=== PATIENT | female | born 1990 | race Caucasian/White ===

== ENCOUNTER 2016-09-29 20:39 | Emergency (ER) | payer SELFPAY ==
--- NOTE | 2016-09-29 21:20 | ER Document Report ---
ED Medical Screen (RME) - General Chief Complaint: Rash Stated Complaint: FACE RASH Mode of Arrival: Ambulatory Information source: Patient Notes: 26 y/o F presents to ED c/o blistering skin to bridge of nose and left cheek. Reports has sun sensitivity and was kayaking for 4 hrs 3 days ago. Denies itching or drainage. I have greeted and performed a rapid initial assessment of this patient. A comprehensive ED assessment and evaluation of the patient, analysis of test results and completion of the medical decision making process will be conducted by additional ED providers. TRAVEL OUTSIDE OF THE [place] IN LAST 30 DAYS: No - Related Data Allergies/Adverse Reactions: sulfamethoxazole [From Bactrim] Allergy (Verified 09/29/16 21:13) throat swells, hives trimethoprim [From Bactrim] Allergy (Verified 09/29/16 21:13) throat swells, hives Past Medical History - Social History Chew tobacco use (# tins/day): No Frequency of alcohol use: None Drug Abuse: None Renal/ Medical History: Denies: Hx Peritoneal Dialysis - Immunizations Hx Diphtheria, Pertussis, Tetanus Vaccination: Yes Physical Exam - Vital signs Vitals: Temp Pulse Resp BP Pulse Ox 98.9 F 78 16 107/55 L 99 09/29/16 21:07 09/29/16 21:07 09/29/16 21:07 09/29/16 21:07 09/29/16 21:07 - General General appearance: Appears well, Alert In distress: None - Respiratory Respiratory status: No respiratory distress Course - Vital Signs Vital signs: Temp Pulse Resp BP Pulse Ox 98.9 F 78 16 107/55 L 99 09/29/16 21:09 09/29/16 21:09 09/29/16 21:09 09/29/16 21:09 09/29/16 21:09
--- NOTE | 2016-09-30 00:02 | ER Document Report ---
HPI - HPI Patient complains to provider of: Skin rash Pain Level: 1 Context: Patient is a 26-year-old female that comes emergency department for chief complaint of a rash located on her nose and left cheek, she states that she was out in a kayak out in the sun, the following day she developed red elevated spots, after this she started putting hydrocortisone cream on it for 2 days, afterward she stopped and applied antifungal, states the area is not itchy, slightly tender if she presses on it, and has a cracked appearance. - DERM Skin Color: Normal, [place] <NEIL DELEON - Last Filed: 09/30/16 07:08> Past Medical History - General Information source: Patient - Social History Smoking Status: Current Every Day Smoker Chew tobacco use (# tins/day): No Frequency of alcohol use: None Drug Abuse: None Lives with: Family Family History: Reviewed & Not Pertinent Patient has suicidal ideation: No Patient has homicidal ideation: No - Medical History Medical History: Negative Renal/ Medical History: Denies: Hx Peritoneal Dialysis Surgical Hx: Negative - Immunizations Immunizations up to date: Yes Hx Diphtheria, Pertussis, Tetanus Vaccination: Yes <NEIL DELEON Last Filed: 09/30/16 07:08> Vertical Provider Document - CONSTITUTIONAL General Appearance: WD/WN, No Apparent Distress - INFECTION CONTROL TRAVEL OUTSIDE OF THE [place] IN LAST 30 DAYS: No - HEENT HEENT: Atraumatic, Normal ENT Exam, Normocephalic - NECK Neck: Normal Inspection - RESPIRATORY Respiratory: Breath Sounds Normal, No Respiratory Distress O2 Sat by Pulse Oximetry: 99 - CARDIOVASCULAR Cardiovascular: Regular Rate, Regular Rhythm - GI/ABDOMEN Gastrointestinal: Abdomen Soft, Abdomen Non-Tender - BACK Back: Normal Inspection - MUSCULOSKELETAL/EXTREMETIES Musculoskeletal/Extremeties: MAEW, FROM, Non-Tender - NEURO Level of Consciousness: Awake, Alert, Appropriate Motor/Sensory: No Motor Deficit, No Sensory Deficit - DERM Integumentary: Warm, Dry, Rash - Two discrete areas of abnormality on the face, one on the left lateral zygomatic area, the other on the nose. Area is mildly erythematous, nontender, has dry cracked scaly skin over it, no vesicles, bulla , induration, fluctuance <NEIL DELEON Last Filed: 09/30/16 07:08> Course - Re-evaluation Re-evalutation: There are 2 discrete areas of abnormality on the face, one on the left lateral zygomatic area, the other on the nose. Area is mildly erythematous, nontender, has dry cracked scaly skin over it, no vesicles, bulla, induration, fluctuance. Does not appear to be infected. Patient has already been using hydrocortisone before this dry appearance happened. Discussed with Dr. Ga, recommends moisturizing agent, patient referred to dermatology, discussed return precautions, patient states understanding and agreement. - Vital Signs Vital signs: Temp Pulse Resp BP Pulse Ox 98.9 F 78 16 107/55 L 99 09/29/16 21:09 09/29/16 21:09 09/29/16 21:09 09/29/16 21:09 09/29/16 21:09 <NEIL DELEON - Last Filed: 09/30/16 07:08> - Vital Signs Vital signs: Temp Pulse Resp BP Pulse Ox 98.7 F 70 16 100/52 L 99 09/30/16 01:00 09/30/16 01:00 09/30/16 01:00 09/30/16 01:00 09/30/16 07:11 <BRENDA GA - Last Filed: 09/30/16 14:08> Discharge <NEIL DELEON - Last Filed: 09/30/16 07:08> <BRENDA GA - Last Filed: 09/30/16 14:08> - Discharge Clinical Impression: Facial dermatitis Condition: Stable Disposition: HOME, SELF-CARE Additional Instructions: Stop the steroid at this time, your skin appears to have reacted strongly to the steroid cream, begin moisturizing cream such as Aloe vera (or stronger options such as Shirudo AGR+E, etc). I also suggest using nicotinamide vitamin supplement. Avoid strong sun exposures at this time. If symptoms persist follow-up with dermatology for additional evaluation and treatment (see referral) Return to the emergency department for any concerning or worsening symptoms including redness, swelling, fever, or other signs of infection. Referrals: TARIK STOKES DO [ACTIVE STAFF] - Follow up in 3-5 days
[2016-09-30 02:22] VITALS: BP 100/52
== END 2016-09-30 01:00 | disposition home or self-care (01) ==
LOC: ER 20:39
DX: L30.9 Dermatitis, unspecified (principal); F17.200 Nicotine dependence, unspecified, uncomplicated
CPT/HCPCS: 99282

== ENCOUNTER 2016-10-03 09:46 | Emergency (ER) | payer SELFPAY ==
[2016-10-03] MEDS ORDERED: MUPIROCIN 2% OINTMENT 22 GM TP ONE (10:22)
[2016-10-03] MEDS ORDERED: CEPHALEXIN 500 MG CAPSULE PO ONE (10:22)
--- NOTE | 2016-10-03 10:24 | ER Document Report ---
HPI - HPI Patient complains to provider of: patient presents with facial rash Onset: Other - Over 1 week ago Onset/Duration: Persistent, Worse Quality of pain: Burning Pain Level: 2 Context: Patient complains of painful facial rash that started over a week ago and has gradually gotten worse. Patient initially used a topical antifungal cream without relief of her symptoms. Associated Symptoms: Other - Facial rash Exacerbated by: Denies Relieved by: Denies Similar symptoms previously: No Recently seen / treated by doctor: Yes - ROS ROS below otherwise negative: Yes Systems Reviewed and Negative: Yes All other systems reviewed and negative - CONSTITUTIONAL Constitutional: DENIES: Fever - DERM Skin Color: Normal Skin Problems: Rash Past Medical History - General Information source: Patient - Social History Smoking Status: Current Every Day Smoker Chew tobacco use (# tins/day): No Frequency of alcohol use: None Drug Abuse: None Occupation: [employer] Family History: Reviewed & Not Pertinent Patient has suicidal ideation: No Patient has homicidal ideation: No - Medical History Medical History: Negative Renal/ Medical History: Denies: Hx Peritoneal Dialysis Surgical Hx: Negative - Immunizations Immunizations up to date: Yes Hx Diphtheria, Pertussis, Tetanus Vaccination: Yes Vertical Provider Document - CONSTITUTIONAL Agree With Documented VS: Yes Exam Limitations: No Limitations General Appearance: WD/WN, No Apparent Distress - INFECTION CONTROL TRAVEL OUTSIDE OF THE [place] IN LAST 30 DAYS: No - HEENT HEENT: Atraumatic, Normocephalic - NECK Neck: Normal Inspection, Supple - RESPIRATORY Respiratory: Breath Sounds Normal, No Respiratory Distress O2 Sat by Pulse Oximetry: 98 - CARDIOVASCULAR Cardiovascular: Regular Rate, Regular Rhythm - MUSCULOSKELETAL/EXTREMETIES Musculoskeletal/Extremeties: MAEW - NEURO Level of Consciousness: Awake, Alert, Appropriate Motor/Sensory: No Motor Deficit - DERM Integumentary: Warm, Dry, Rash - Erythematous scaling, crusted rash to left side of face, forehead, right upper arm, and bridge of nose. Crusted lesions are honey-colored Course - Vital Signs Vital signs: Temp Pulse Resp BP Pulse Ox 97.9 F 93 16 127/61 H 98 10/03/16 09:50 10/03/16 09:50 10/03/16 09:50 10/03/16 09:50 10/03/16 09:50 Discharge - Discharge Clinical Impression: Impetigo Condition: Stable Disposition: HOME, SELF-CARE Instructions: Bactroban Ointment ([facility]), Cephalexin ([facility]), Impetigo ([facility]), Oral Narcotic Medication ([facility]) Additional Instructions: Return immediately for any new or worsening symptoms Followup with your primary care provider, call tomorrow to make a followup appointment Follow up with dermatology as planned Prescriptions: Cephalexin Monohydrate [Keflex 500 mg Capsule] 500 mg PO Q6H 7 Days Hydrocodone/Acetaminophen [[place] 5-325 Tablet] 1 each PO Q4 PRN #15 tablet PRN Reason: Mupirocin [Bactroban 2% Ointment 22 gm] 1 applic TP TID #22 gm Forms: Return to Work Referrals: TARIK STOKES, [ACTIVE STAFF] - Follow up as needed
[2016-10-03 11:04] VITALS: BP 106/64
== END 2016-10-03 10:57 | disposition home or self-care (01) ==
LOC: ER 09:46
DX: L01.00 Impetigo, unspecified (principal); F17.200 Nicotine dependence, unspecified, uncomplicated
CPT/HCPCS: 99283; J3490

== ENCOUNTER 2017-02-14 04:49 | Emergency (ER) | payer SELFPAY ==
[2017-02-14 04:57] VITALS: BP 119/61
[2017-02-14 05:40] LABS: ABSOLUTE BASOPHILS # (AUTO) 0.1 10^3/uL (0.0-0.2); ABSOLUTE EOSINOPHILS # (AUTO) 0.2 10^3/uL (0.0-0.6); ABSOLUTE LYMPHOCYTES (AUTO) 2.8 10^3/uL (0.5-4.7); ABSOLUTE MONOCYTES (AUTO) 0.6 10^3/uL (0.1-1.4); ABSOLUTE NEUT (AUTO) 6.1 10^3/uL (1.7-8.2); BASOPHILS % (AUTO) 0.6 % (0-2); EOSINOPHILS % (AUTO) 2.3 % (0-6); HEMATOCRIT 37.7 % (36.0-47.0); HEMOGLOBIN 12.6 g/dL (12.0-15.5); HGB HCT DIFFERENCE 0.1; LYMPHOCYTES % (AUTO) 29.1 % (13-45); MEAN CORPUSCULAR HGB CONC 33.4 g/dL (32.0-36.0); MEAN CORPUSCULAR VOLUME 96 fl (80-97); MONOCYTES % (AUTO) 5.7 % (3-13); RED BLOOD COUNT 3.94 10^6/uL (3.72-5.28); RED CELL DISTRIBUTION WIDTH 12.7 % (11.5-14.0); SEGMENTED NEUTROPHILS % (AUTO) 62.3 % (42-78); WHITE BLOOD COUNT 9.7 10^3/uL (4.0-10.5)
[2017-02-14 05:46] LABS: APPEARANCE,URINE CLEAR; BILIRUBIN,URINE NEGATIVE (NEGATIVE); GLUCOSE, URINE NEGATIVE (NEGATIVE); KETONES,URINE NEGATIVE (NEGATIVE); LEUKOCYTE ESTERASE,URINE NEGATIVE (NEGATIVE); NITRITE,URINE NEGATIVE (NEGATIVE); PROTEIN,URINE NEGATIVE (NEGATIVE); URINE SPECIFIC GRAVITY 1.005; UROBILINOGEN,URINE NEGATIVE mg/dL (<2.0)
[2017-02-14 05:58] LABS: ALANINE AMINOTRANSFERASE 24 U/L (9-52); ALBUMIN 4.3 g/dL (3.5-5.0); ALKALINE PHOSPHATASE 52 U/L (38-126); ANION GAP 12 (5-19); ASPARTATE AMINO TRANSFERASE 16 U/L (14-36); BILIRUBIN,DIRECT 0.3 mg/dL (0.0-0.4); BILIRUBIN,TOTAL 0.4 mg/dL (0.2-1.3); BLOOD UREA NITROGEN 7 mg/dL (7-20); CALCIUM 9.2 mg/dL (8.4-10.2); CARBON DIOXIDE 20 mmol/L (22-30); CHLORIDE 106 mmol/L (98-107); CREATININE RESULT 0.86 mg/dL (0.52-1.25); GLUCOSE 90 mg/dL (75-110); POTASSIUM 3.6 mmol/L (3.6-5.0); TOTAL PROTEIN 7.1 g/dL (6.3-8.2)
--- NOTE | 2017-02-14 07:07 | ER Document Report ---
ED GI/ - General Chief Complaint: Abdominal Pain Stated Complaint: ABDOMINAL PAIN Time Seen by Provider: 02/14/17 07:07 Mode of Arrival: Ambulatory Information source: Patient Notes: 26 yo female c/o sudden onset periumbilical abdominal pain 2.5/5 that [place] the RLQ [place] 0330 [place] Worse standing and stretcing out, better curled up. Nausea at first, no vomit. No diarrhea or constipation. No vaginal discharge. No dysuria. No fever. Drinking last night. No injury. Left Salpingectomy for Ectopic 2015. . TRAVEL OUTSIDE OF THE [place] IN LAST 30 DAYS: No - Related Data Allergies/Adverse Reactions: sulfamethoxazole [From Bactrim] Allergy (Verified 10/03/16 09:54) throat swells, hives trimethoprim [From Bactrim] Allergy (Verified 10/03/16 09:54) throat swells, hives Past Medical History - General Information source: Patient - Social History Smoking Status: Current Every Day Smoker Chew tobacco use (# tins/day): No Frequency of alcohol use: last night Drug Abuse: None Occupation: unemployed Lives with: Spouse/Significant other Family History: Reviewed & Not Pertinent Patient has suicidal ideation: No Patient has homicidal ideation: No - Medical History Medical History: Negative Renal/ Medical History: Denies: Hx Peritoneal Dialysis Past Surgical History: Reports: Other - salpingectomy - Immunizations Immunizations up to date: Yes Hx Diphtheria, Pertussis, Tetanus Vaccination: Yes Review of Systems - Review of Systems Constitutional: No symptoms reported EENT: No symptoms reported Cardiovascular: No symptoms reported Respiratory: No symptoms reported Gastrointestinal: See HPI Genitourinary: No symptoms reported Female Genitourinary: No symptoms reported Musculoskeletal: No symptoms reported Skin: No symptoms reported Hematologic/Lymphatic: No symptoms reported Neurological/Psychological: No symptoms reported Physical Exam - Vital signs Vitals: Temp Pulse Resp BP Pulse Ox 97.6 F 61 18 119/61 96 02/14/17 04:53 02/14/17 04:53 02/14/17 04:53 02/14/17 04:53 02/14/17 04:53 Interpretation: Normal - General General appearance: Appears well, Alert In distress: None - HEENT Head: Normocephalic, Atraumatic Eyes: Normal Conjunctiva: Normal Pupils: PERRL Mucous membranes: Dry Neck: Supple. No: Lymphadenopathy - Respiratory Respiratory status: No respiratory distress Chest status: Nontender Breath sounds: Normal Chest palpation: Normal - Cardiovascular Rhythm: Regular Heart sounds: Normal auscultation Murmur: No - Abdominal Inspection: Normal Distension: No distension Bowel sounds: Normal Tenderness: Tender - umbilical and RLQ, McBurney's point Organomegaly: No organomegaly. No: Hepatomegaly, Splenomegaly - Genitourinary External exam: Normal Speculum exam: Normal, Cervix closed. No: Vaginal discharge Bimanuel exam: No: Cervical motion tender, Adnexal tenderness - Back Back: Normal, Nontender. No: CVA tenderness - Extremities General upper extremity: Normal inspection, Nontender, Normal color, Normal ROM , Normal temperature General lower extremity: Normal inspection, Nontender, Normal color, Normal ROM , Normal temperature, Normal weight bearing. No: Marques's sign - Neurological Neuro grossly intact: Yes Cognition: Normal Orientation: AAOx4 [place] Coma Scale Eye Opening: Spontaneous [place] Coma Scale Verbal: Oriented [place] Coma Scale Motor: Obeys Commands [place] Coma Scale Total: 15 Speech: Normal Motor strength normal: LUE, RUE, LLE, RLE Sensory: Normal - Psychological Associated symptoms: Normal affect, Normal mood - Skin Skin Temperature: Warm Skin Moisture: Dry Skin Color: Normal Course - Re-evaluation Re-evalutation: 02/14/17 11:19 labs negative, less tender lower into RLQ now, appendix normal on CT 3.7 cm right ovarian cyst, will send for TV US to r/o ovarian torsion 02/14/17 12:42 doppler shows ovarian cysts bilateral, no torsion, spoke with pt, rec ob follow up tramadol for pain - Vital Signs Vital signs: Temp Pulse Resp BP Pulse Ox 97.6 F 61 18 119/61 96 02/14/17 04:53 02/14/17 04:53 02/14/17 04:53 02/14/17 04:53 02/14/17 04:53 - Laboratory Result Diagrams: 02/14/17 05:27 02/14/17 05:27 Laboratory results interpreted by me: 02/14/17 05:27 Carbon Dioxide 20 L Discharge - Discharge Clinical Impression: Bilateral ovarian cysts Abdominal pain Qualifiers: Abdominal location: right lower quadrant Qualified Code(s): R10.31 - Right lower quadrant pain Condition: Good Disposition: HOME, SELF-CARE Instructions: Abdominal Pain ([facility]), Ovarian Cyst ([facility]), [facility]-[employer] Additional Instructions: to er if worse see obgyn for follow up on the ovarian cysts Prescriptions: Tramadol HCl [Ultram 50 mg Tablet] 50 mg PO ASDIR PRN #15 tablet PRN Reason:
[2017-02-14] MEDS ORDERED: NORMAL SALINE 1000 ML 1,000 ML IV ONE (07:24)
[2017-02-14] MEDS ORDERED: MORPHINE SULFATE 10 MG/ML INJ IV ONE (07:25)
[2017-02-14] MEDS ORDERED: ONDANSETRON HCL INJ/PF 4 MG/2 ML SDV IV ONE (07:25)
[2017-02-14 09:50] LABS: CHLAM PCR NOT DETECTED (NOT DETECT)
--- NOTE | 2017-02-14 11:12 | RADIOLOGY REPORT (SQ) ---
EXAM DESCRIPTION: CT ABD/PELVIS WITH IV ORAL COMPLETED DATE/TIME: 02/14/2017 10:55 am REASON FOR STUDY: RLQ abd pain COMPARISON: None. TECHNIQUE: CT scan of the abdomen and pelvis performed with intravenous and oral contrast using daniele jason scanning technique with dynamic intravenous contrast injection. Images reviewed with lung, soft t issue, and bone windows. Reconstructed coronal and sagittal MPR images reviewed. Delayed images for e valuation of the urinary system also acquired. All images stored on PACS. All CT scanners at this facility use dose modulation, iterative reconstruction, and/or weight based d osing when appropriate to reduce radiation dose to as low as reasonably achievable (ALARA). [facility]: Dose Right [facility]: CareDose [facility]: Dose Right [facility]: Teradose 4D [facility]: Audacious CONTRAST TYPE AND DOSE: contrast/concentration: Isovue 370.00 mg/ml; Total Contrast Delivered: 85.0 ml; Total Saline Delivered: 69.0 ml RENAL FUNCTION: None required. The patient is less than 50 years old. RADIATION DOSE: Up-to-date CT equipment and radiation dose reduction techniques were employed. CTDIv ol: 11.4 - 16.2 mGy. DLP: 1350 mGy-cm.. LIMITATIONS: None. FINDINGS: LOWER CHEST: No significant findings. No nodules or infiltrates. LIVER: Normal size. No masses. No dilated ducts. SPLEEN: Normal size. No focal lesions. PANCREAS: No masses. No significant calcifications. No adjacent inflammation or peripancreatic fluid collections. Pancreatic duct not dilated. GALLBLADDER: No identified stones by CT criteria. No inflammatory changes to suggest cholecystitis. ADRENAL GLANDS: No significant masses or asymmetry. RIGHT KIDNEY AND URETER: No solid masses. No significant calcification. No hydronephrosis or hydroure ter. LEFT KIDNEY AND URETER: No solid masses. No significant calcification. No hydronephrosis or hydrouret er. AORTA AND VESSELS: No aneurysm. No dissection. Renal arteries, SMA, celiac without stenosis. RETROPERITONEUM: No retroperitoneal adenopathy, hemorrhage or masses. BOWEL AND PERITONEAL CAVITY: No obstruction. No visualized masses. No free fluid. No inflammatory ch anges or thickening of bowel wall. APPENDIX: Normal. PELVIS: 3.7 cm relatively simple appearing cyst adjacent to the right ovary. No worrisome pelvic mas s. No free pelvic fluid. Bladder unremarkable. ABDOMINAL WALL: No masses. No hernias. BONES: No significant or acute findings. OTHER: No other significant finding. IMPRESSION: 1. Appendix normal. 2. Incidental simple appearing right ovarian region cyst, doubtful clinical significance, particularly in a reproductive age patient. However, given the patient's righ t lower quadrant symptomatology further followup may be warranted. This could include pelvic ultraso und Doppler assessment. TECHNICAL DOCUMENTATION: JOB ID: [id number] Quality ID # [id number]: Final reports with documentation of one or more dose reduction techniques (e.g., Au tomated exposure control, adjustment of the mA and/or kV according to patient size, use of iterative reconstruction technique) 2010 [employer]- All Rights Reserved
--- NOTE | 2017-02-14 12:05 | RADIOLOGY REPORT (SQ) ---
EXAM DESCRIPTION: U/S NON OB PEL TV W/DOPPLER COMPLETED DATE/TIME: 02/14/2017 11:55 am REASON FOR STUDY: r/o ovarian torsion, ovarian cyst COMPARISON: 02/14/2017 CT from earlier. TECHNIQUE: Dynamic and static grayscale images acquired of the pelvis via transvaginal approach and recorded on PACS. Additional selected color Doppler and spectral images recorded. LIMITATIONS: None. FINDINGS: UTERUS: Contour normal. No mass. ENDOMETRIAL STRIPE: No focal or generalized thickening. No masses. CERVIX: No nabothian cysts. RIGHT OVARY: No abnormal masses. 3.8 cm relatively simple appearing cyst. RIGHT OVARY DOPPLER: Normal arterial vascular flow without evidence for torsion. LEFT OVARY: No abnormal masses. 2.4 cm simple appearing cyst. LEFT OVARY DOPPLER: Normal arterial vascular flow without evidence for torsion. FREE FLUID: Trace. OTHER: No other significant finding. MEASUREMENTS: UTERUS: 8.8 x 4.8 x 4.0 cm ENDOMETRIAL STRIPE: 10 mm RIGHT OVARY: 5.9 x 3.1 x 2.3 cm LEFT OVARY: 3.9 x 3.5 x 2.7 cm IMPRESSION: No evidence of torsion. Bilateral small ovarian simple appearing cysts. TECHNICAL DOCUMENTATION: JOB ID: [id number] [employer]- All Rights Reserved
== END 2017-02-14 13:09 | disposition home or self-care (01) ==
LOC: ER 04:49
DX: N83.202 Unspecified ovarian cyst, left side (principal); N83.201 Unspecified ovarian cyst, right side; R11.0 Nausea; F17.200 Nicotine dependence, unspecified, uncomplicated; Z88.1 Allergy status to other antibiotic agents
CPT/HCPCS: 99284; 96374; 96375; 36415; 87210; 85025; 81025; 80053; 81001; 87491; 87591; 76830; 93976; 74177; J2270; J2405; J7030

== ENCOUNTER 2018-08-13 12:40 | Emergency (ER) | payer SELFPAY ==
[2018-08-13] MEDS ORDERED: ACETAMINOPHEN 325 MG TABLET PO ONE (13:58)
--- NOTE | 2018-08-13 14:01 | ER Document Report ---
ED General - General Chief Complaint: Upper Abdominal Pain Stated Complaint: ABDOMINAL PAIN Time Seen by Provider: 08/13/18 13:51 TRAVEL OUTSIDE OF THE [place] IN LAST 30 DAYS: No - HPI Notes: Patient is a 28-year-old female that presents to the emergency department for chief complaint of abdominal pain. Patient reports abdominal pain for about a week. She states that is usually epigastric and then radiates into her lower abdomen. She has associated nausea with no vomiting. She reports some urinary frequency but denies dysuria. She denies fevers and chills. She did have a positive test in July. She had her LMP 06/24/18. She has not seen [facility]. She reports some mild vagin al bleeding since . She has required RhoGam with previous pregnancies. She has a history of ectopic which required surgery in the past. She has not taken any [id number] medication for pain. Past Medical History: Negative Past Surgical History: Ectopic removal Social History: Occasional tobacco, occasional alcohol, denies drug use Family History: Reviewed and noncontributory for presenting illness Allergies: Reviewed, see documented allergy list. REVIEW OF SYSTEMS: CONSTITUTIONAL : No fever No chills No diaphoresis No recent illness EENT: No vision changes No congestion No sore throat CARDIOVASCULAR: No chest pain No palpitations RESPIRATORY: No shortness of breath No cough No difficulty breathing GASTROINTESTINAL: abdominal pain No nausea No vomiting No diarrhea GENITOURINARY: Urinary frequency Vaginal bleeding No dysuria No hematuria No difficulty urinating MUSCULOSKELETAL: No back pain No leg pain No arm pain SKIN: No rashes No lesions LYMPHATIC: No swollen, enlarged glands. NEUROLOGICAL: No lightheadedness No headache No weakness No paresthesias PSYCHIATRIC: No anxiety No depression PHYSICAL EXAMINATION: Vital signs reviewed, nursing noted reviewed. GENERAL: Well-appearing, well-nourished and in no acute distress. HEAD: Atraumatic, normocephalic. EYES: Eyes appear normal, extraocular movements intact, sclera anicteric, conjunctiva are normal. ENT: nares patent, oropharynx clear without exudates. Moist mucous membranes. NECK: Normal range of motion, supple without lymphadenopathy LUNGS: Breath sounds clear to auscultation bilaterally and equal. No wheezes rales or rhonchi. HEART: Regular rate and rhythm without murmurs ABDOMEN: Soft, mild epigastric tendernes, negative McBurney's point tenderness, negative Green sign, normoactive bowel sounds. No rebound, guarding, or rigidity. No masses appreciated. EXTREMITIES: Nontender, good range of motion, no pitting or edema. NEUROLOGICAL: No focal neurological deficits. Moves all extremities spontaneously Motor and sensory grossly intact on exam. PSYCH: Normal mood, normal affect. SKIN: Warm, Dry, normal turgor, no rashes or lesions noted on exposed skin - Related Data Allergies/Adverse Reactions: sulfamethoxazole [From Bactrim] Allergy (Verified 10/03/16 09:54) throat swells, hives trimethoprim [From Bactrim] Allergy (Verified 10/03/16 09:54) throat swells, hives Past Medical History - Social History Smoking Status: Current Every Day Smoker Chew tobacco use (# tins/day): No Frequency of alcohol use: Rare Drug Abuse: None Family History: Reviewed & Not Pertinent Patient has suicidal ideation: No Patient has homicidal ideation: No Renal/ Medical History: Denies: Hx Peritoneal Dialysis Past Surgical History: Reports: Other - salpingectomy - Immunizations Immunizations up to date: Yes Hx Diphtheria, Pertussis, Tetanus Vaccination: Yes Physical Exam - Vital signs Vitals: Temp Pulse Resp BP Pulse Ox 98.1 F 77 16 120/66 100 08/13/18 12:44 08/13/18 12:44 08/13/18 12:44 08/13/18 12:44 08/13/18 12:44 Course - Re-evaluation Re-evalutation: 08/13/18 14:01 Vitals reviewed. Nursing notes reviewed. Patient given Tylenol for pain. She is afebrile and nontoxic in appearance. She is complaining of vaginal bleeding in and RhoGam workup will be initiated. She has required it in the past and will likely require it again today. Ultrasound will be obtained to evaluate for ectopic . Patient denies any vaginal discharge or concern for STD. 08/13/18 15:51 Patient's beta hCG is negative. She is not . RhoGam is no longer indicated. Patient is not requiring ultrasound to rule out ectopic. She has normal lab work including no leukocytosis. She has no electrolyte derangements. Patient will be started on omeprazole. She was counseled on dietary changes. She will return to the emergency room for any new or concerning symptoms. She will follow with primary care in the next few days. Laboratory 08/13/18 08/13/18 08/13/18 14:12 14:12 14:12 WBC 10.6 H RBC 4.46 Hgb 14.2 Hct 41.7 MCV 93 MCH 31.8 MCHC 34.0 RDW 12.7 Plt Count 218 Seg Neutrophils % 69.2 Lymphocytes % 21.8 Monocytes % 6.3 Eosinophils % 2.1 Basophils % 0.6 Absolute Neutrophils 7.3 Absolute Lymphocytes 2.3 Absolute Monocytes 0.7 Absolute Eosinophils 0.2 Absolute Basophils 0.1 Sodium 140.0 Potassium 4.3 Chloride 104 Carbon Dioxide 24 Anion Gap 12 BUN 10 Creatinine 0.80 Est GFR ( Amer) > 60 Est GFR (Non-Af Amer) > 60 Glucose 96 Calcium 10.1 Total Bilirubin 0.4 Direct Bilirubin 0.1 Neonat Total Bilirubin Not Reportable Neonat Direct Bilirubin Not Reportable Neonat Indirect Bili Not Reportable AST 23 ALT 31 Alkaline Phosphatase 71 Total Protein 8.0 Albumin 5.1 H Beta HCG, Quant < 2.39 Total Beta HCG NEGATIVE Urine Color Urine Appearance Urine pH Ur Specific [place] Urine Protein Urine Glucose (UA) Urine Ketones Urine Blood Urine Nitrite Urine Bilirubin Urine Urobilinogen Ur Leukocyte Esterase Urine WBC (Auto) Urine RBC (Auto) Urine Bacteria (Auto) Squamous Epi Cells Auto Urine Mucus (Auto) Urine Ascorbic Acid Blood Type O NEGATIVE Rhogam Indicated RHOGAM NOT REQUESTED 08/13/18 14:12 WBC RBC Hgb Hct MCV MCH MCHC RDW Plt Count Seg Neutrophils % Lymphocytes % Monocytes % Eosinophils % Basophils % Absolute Neutrophils Absolute Lymphocytes Absolute Monocytes Absolute Eosinophils Absolute Basophils Sodium Potassium Chloride Carbon Dioxide Anion Gap BUN Creatinine Est GFR ( Amer) Est GFR (Non-Af Amer) Glucose Calcium Total Bilirubin Direct Bilirubin Neonat Total Bilirubin Neonat Direct Bilirubin Neonat Indirect Bili AST ALT Alkaline Phosphatase Total Protein Albumin Beta HCG, Quant Total Beta HCG Urine Color YELLOW Urine Appearance SLIGHTLY-CLOUDY Urine pH 7.0 Ur Specific [place] 1.008 Urine Protein NEGATIVE Urine Glucose (UA) NEGATIVE Urine Ketones NEGATIVE Urine Blood NEGATIVE Urine Nitrite NEGATIVE Urine Bilirubin NEGATIVE Urine Urobilinogen NEGATIVE Ur Leukocyte Esterase SMALL H Urine WBC (Auto) 4 Urine RBC (Auto) 2 Urine Bacteria (Auto) TRACE Squamous Epi Cells Auto 8 Urine Mucus (Auto) RARE Urine Ascorbic Acid NEGATIVE Blood Type Rhogam Indicated She is stable at discharge. - Vital Signs Vital signs: Temp Pulse Resp BP Pulse Ox 97.4 F 56 L 20 117/57 L 100 08/13/18 17:37 08/13/18 17:37 08/13/18 17:37 08/13/18 17:37 08/13/18 17:37 - Laboratory Result Diagrams: 08/13/18 14:12 08/13/18 14:12 Laboratory results interpreted by me: 08/13/18 08/13/18 08/13/18 14:12 14:12 14:12 WBC 10.6 H Albumin 5.1 H Ur Leukocyte Esterase SMALL H Discharge - Discharge Clinical Impression: Abdominal pain Condition: Stable Disposition: HOME, SELF-CARE Instructions: Abdominal Pain ([facility]) Additional Instructions: Please return to the emergency department if you have any worsening, or concern of your symptoms. Please return to the emergency department if you develop chest pain, difficulty breathing, severe abdominal pain, or ongoing vomiting. Please follow-up with your primary care physician in 2-3 days and any other recommended physicians. If prescribed, take all medications as directed. If you have any questions or concerns do not hesitate to return the emergency department for evaluation. Your test in the emergency room today is negative Prescriptions: RX: Omeprazole 40 mg PO DAILY #30 capsule. Referrals: [facility] [Provider Group] - Follow up as needed
[2018-08-13 14:39] LABS: ABSOLUTE BASOPHILS # (AUTO) 0.1 10^3/uL (0.0-0.2); ABSOLUTE EOSINOPHILS # (AUTO) 0.2 10^3/uL (0.0-0.6); ABSOLUTE LYMPHOCYTES (AUTO) 2.3 10^3/uL (0.5-4.7); ABSOLUTE MONOCYTES (AUTO) 0.7 10^3/uL (0.1-1.4); ABSOLUTE NEUT (AUTO) 7.3 10^3/uL (1.7-8.2); BASOPHILS % (AUTO) 0.6 % (0-2); EOSINOPHILS % (AUTO) 2.1 % (0-6); HEMATOCRIT 41.7 % (36.0-47.0); HEMOGLOBIN 14.2 g/dL (12.0-15.5); LYMPHOCYTES % (AUTO) 21.8 % (13-45); MEAN CORPUSCULAR HEMOGLOBIN 31.8 pg (27.0-33.4); MEAN CORPUSCULAR VOLUME 93 fl (80-97); MONOCYTES % (AUTO) 6.3 % (3-13); PLATELET COUNT 218 10^3/uL (150-450); RED BLOOD COUNT 4.46 10^6/uL (3.72-5.28); RED CELL DISTRIBUTION WIDTH 12.7 % (11.5-14.0); SEGMENTED NEUTROPHILS % (AUTO) 69.2 % (42-78); TOTAL CELLS COUNTED % (AUTO) 100 %; WHITE BLOOD COUNT 10.6 10^3/uL (4.0-10.5)
[2018-08-13 14:51] LABS: APPEARANCE,URINE SLIGHTLY-CLOUDY; BILIRUBIN,URINE NEGATIVE (NEGATIVE); COLOR,URINE YELLOW; GLUCOSE, URINE NEGATIVE (NEGATIVE); KETONES,URINE NEGATIVE (NEGATIVE); LEUKOCYTE ESTERASE,URINE SMALL (NEGATIVE); NITRITE,URINE NEGATIVE (NEGATIVE); PROTEIN,URINE NEGATIVE (NEGATIVE); URINE SPECIFIC GRAVITY 1.008; UROBILINOGEN,URINE NEGATIVE mg/dL (<2.0)
[2018-08-13 15:04] LABS: ALANINE AMINOTRANSFERASE 31 U/L (9-52); ALBUMIN 5.1 g/dL (3.5-5.0); ALKALINE PHOSPHATASE 71 U/L (38-126); ANION GAP 12 (5-19); ASPARTATE AMINO TRANSFERASE 23 U/L (14-36); BILIRUBIN,DIRECT 0.1 mg/dL (0.0-0.4); BILIRUBIN,TOTAL 0.4 mg/dL (0.2-1.3); BLOOD UREA NITROGEN 10 mg/dL (7-20); CALCIUM 10.1 mg/dL (8.4-10.2); CARBON DIOXIDE 24 mmol/L (22-30); CHLORIDE 104 mmol/L (98-107); GLUCOSE 96 mg/dL (75-110); POTASSIUM 4.3 mmol/L (3.6-5.0)
[2018-08-13 17:38] VITALS: BP 117/57
== END 2018-08-13 17:38 | disposition home or self-care (01) ==
LOC: ER 12:40
DX: R10.10 Upper abdominal pain, unspecified (principal); R10.30 Lower abdominal pain, unspecified; R11.0 Nausea; R35.0 Frequency of micturition; F17.200 Nicotine dependence, unspecified, uncomplicated; Z88.3 Allergy status to other anti-infective agents
CPT/HCPCS: 36415; 80053; 81001; 84702; 85025; 86900; 86901; 99284

== ENCOUNTER 2018-11-24 05:42 | Emergency (ER) | payer SELFPAY ==
[2018-11-24] MEDS ORDERED: NORMAL SALINE 500 ML IV ONE (08:46)
[2018-11-24] MEDS ORDERED: ONDANSETRON HCL INJ/PF 4 MG/2 ML SDV IV ONE (08:46)
[2018-11-24 08:57] LABS: ABSOLUTE BASOPHILS # (AUTO) 0.1 10^3/uL (0.0-0.2); ABSOLUTE EOSINOPHILS # (AUTO) 0.3 10^3/uL (0.0-0.6); ABSOLUTE MONOCYTES (AUTO) 0.8 10^3/uL (0.1-1.4); ABSOLUTE NEUT (AUTO) 5.2 10^3/uL (1.7-8.2); BASOPHILS % (AUTO) 0.8 % (0-2); HEMATOCRIT 37.7 % (36.0-47.0); HEMOGLOBIN 13.3 g/dL (12.0-15.5); LYMPHOCYTES % (AUTO) 24.2 % (13-45); MEAN CORPUSCULAR HEMOGLOBIN 31.8 pg (27.0-33.4); MEAN CORPUSCULAR HGB CONC 35.2 g/dL (32.0-36.0); MEAN CORPUSCULAR VOLUME 90 fl (80-97); MONOCYTES % (AUTO) 9.3 % (3-13); PLATELET COUNT 229 10^3/uL (150-450); RED BLOOD COUNT 4.18 10^6/uL (3.72-5.28); RED CELL DISTRIBUTION WIDTH 12.8 % (11.5-14.0); SEGMENTED NEUTROPHILS % (AUTO) 61.7 % (42-78); TOTAL CELLS COUNTED % (AUTO) 100 %; WHITE BLOOD COUNT 8.4 10^3/uL (4.0-10.5)
[2018-11-24 09:24] LABS: ALANINE AMINOTRANSFERASE 31 U/L (9-52); ALBUMIN 4.3 g/dL (3.5-5.0); ALKALINE PHOSPHATASE 71 U/L (38-126); ANION GAP 7 (5-19); ASPARTATE AMINO TRANSFERASE 20 U/L (14-36); BILIRUBIN,DIRECT 0.3 mg/dL (0.0-0.4); BILIRUBIN,TOTAL 0.4 mg/dL (0.2-1.3); BLOOD UREA NITROGEN 13 mg/dL (7-20); CALCIUM 9.7 mg/dL (8.4-10.2); CARBON DIOXIDE 27 mmol/L (22-30); CHLORIDE 105 mmol/L (98-107); GLUCOSE 88 mg/dL (75-110); POTASSIUM 4.6 mmol/L (3.6-5.0); SODIUM 139.3 mmol/L (137-145); TOTAL PROTEIN 7.7 g/dL (6.3-8.2)
[2018-11-24 09:29] VITALS: BP 104/61
[2018-11-24 09:51] LABS: APPEARANCE,URINE CLEAR; BILIRUBIN,URINE NEGATIVE (NEGATIVE); COLOR,URINE STRAW; GLUCOSE, URINE NEGATIVE (NEGATIVE); KETONES,URINE NEGATIVE (NEGATIVE); LEUKOCYTE ESTERASE,URINE NEGATIVE (NEGATIVE); NITRITE,URINE NEGATIVE (NEGATIVE); PROTEIN,URINE NEGATIVE (NEGATIVE); URINE SPECIFIC GRAVITY 1.005; UROBILINOGEN,URINE NEGATIVE mg/dL (<2.0)
--- NOTE | 2018-11-24 10:04 | ER Document Report ---
ED General - General Chief Complaint: Abdominal Pain Stated Complaint: ABDOMINAL PAIN Time Seen by Provider: 11/24/18 08:36 Primary Care Provider: MARY LIGHT DO [ACTIVE STAFF] - Follow up as needed DELANEY SHIN MD [ACTIVE STAFF] - Follow up as needed TRAVEL OUTSIDE OF THE [place] IN LAST 30 DAYS: No - HPI Notes: Patient is a 28-year-old female who presents to the emergency department for evaluation of abdominal pain. She states yesterday she really did not have much of an appetite. She was slightly nauseated towards the end of the day. She woke up in the middle of night, partially 1 AM. She states when she got out of bed she noticed abdominal pain. It was initially periumbilical, and is now in the right lower quadrant. She states it is significantly worse. She had a normal bowel movement yesterday. No vomiting. No dysuria, hematuria, or urinar y frequency. She states she had a normal menstrual period 2 weeks ago. She denies any vaginal discharge. No history of STI's, no genital lesions. - Related Data Allergies/Adverse Reactions: sulfamethoxazole [From Bactrim] Allergy (Verified 10/03/16 09:54) throat swells, hives trimethoprim [From Bactrim] Allergy (Verified 10/03/16 09:54) throat swells, hives Past Medical History - General Information source: Patient - Social History Smoking Status: Current Every Day Smoker Chew tobacco use (# tins/day): No Frequency of alcohol use: None Drug Abuse: None Family History: Reviewed & Not Pertinent Patient has suicidal ideation: No Patient has homicidal ideation: No Renal/ Medical History: Denies: Hx Peritoneal Dialysis Past Surgical History: Reports: Other - salpingectomy - Immunizations Immunizations up to date: Yes Hx Diphtheria, Pertussis, Tetanus Vaccination: Yes Review of Systems - Review of Systems Constitutional: See HPI EENT: No symptoms reported Cardiovascular: No symptoms reported Respiratory: No symptoms reported Gastrointestinal: See HPI Genitourinary: No symptoms reported Female Genitourinary: No symptoms reported Musculoskeletal: No symptoms reported Skin: No symptoms reported Neurological/Psychological: No symptoms reported Physical Exam - Vital signs Vitals: Temp Pulse Resp BP Pulse Ox 98.2 F 75 18 106/62 97 11/24/18 05:43 11/24/18 05:43 11/24/18 05:43 11/24/18 05:43 11/24/18 05:43 - Notes Notes: Vital signs reviewed, please refer to chart. Patient is normocephalic, atraumatic. Pupils equal round, reactive to light. Neck is supple without meningismus. Heart is regular rate and rhythm. Lungs are clear to auscultation bilaterally. Abdomen is moderately tender in the right lower quadrant. She does have some voluntary guarding. Positive Rovsing. Negative heeltap. Normoactive bowel sounds.. Extremities without cyanosis, clubbing, edema. Peripheral pulses are equal. Skin is warm and dry. Patient is awake, alert, neurological exam is nonfocal. Course - Re-evaluation Re-evalutation: 11/24/18 10:04 Patient presents to the emergency department for evaluation. She has periumbilical pain that migrated to the right lower quadrant, with associated anorexia. I do have a moderately high suspicion for appendicitis in this patient. Given her elevated BMI, I do not feel that oral contrast was acutely necessary. She was scanned with IV contrast only. She was given pain medication. She remained stable, abdominal exam is unchanged. Awaiting CT scan results. 11/24/18 10:32 Patient had laboratory investigations were largely unremarkable. Serial abdominal exams were tender but unchanged. CT scan revealed a right ovarian cyst, 4 cm. This will require follow-up. This was communicated to the patient. We will send her home with anti-inflammatories and close follow-up. She is to return to the emergency department with worsening or new concerning symptoms of any sort. Otherwise, will refer the patient on to [facility] as well as outpatient medical, she does not have a local physician. 11/24/18 10:34 11/24/18 10:36 - Vital Signs Vital signs: Temp Pulse Resp BP Pulse Ox 98.2 F 75 18 104/61 100 11/24/18 05:43 11/24/18 05:43 11/24/18 09:01 11/24/18 09:01 11/24/18 09:01 - Laboratory Result Diagrams: 11/24/18 08:48 11/24/18 08:44 - Diagnostic Test Radiology reviewed: Reports reviewed - 4 centimeter ovarian cyst, normal appendix, no other acute findings Discharge - Discharge Clinical Impression: Right ovarian cyst Abdominal pain Qualifiers: Abdominal location: right lower quadrant Qualified Code(s): R10.31 - Right lower quadrant pain Condition: Stable Disposition: HOME, SELF-CARE Instructions: Abdominal Pain ([facility]), Ovarian Cyst ([facility]) Additional Instructions: Take medication as prescribed. You should have a follow-up ultrasound in 6-12 weeks to reevaluate your ovarian cyst. Rest, stay well-hydrated with small, frequent sips of fluids. [place] diet only as tolerated. Follow-up with outpatient medicine physician as well as [facility]. Return to the ED with worsening or new concerning symptoms. Prescriptions: Naproxen [Naprosyn 375 Mg Tablet] 375 mg PO BID #14 tablet Forms: Return to Work Referrals: DELANEY SHIN MD [ACTIVE STAFF] - Follow up as needed MARY LIGHT DO [ACTIVE STAFF] - Follow up as needed
--- NOTE | 2018-11-24 10:13 | RADIOLOGY REPORT (SQ) ---
EXAM DESCRIPTION: CT ABD/PELVIS WITH IV ONLY COMPLETED DATE/TIME: 11/24/2018 9:50 am REASON FOR STUDY: RLQ pain, r/o appy COMPARISON: None. TECHNIQUE: CT scan of the abdomen and pelvis performed using helical scanning technique with dynamic intravenous contrast injection. No oral contrast. Images reviewed with lung, soft tissue, and bone windows. Reconstructed coronal and sagittal MPR images reviewed. Delayed images for evaluation of the urinary system also acquired. All images stored on PACS. All CT scanners at this facility use dose modulation, iterative reconstruction, and/or weight based d osing when appropriate to reduce radiation dose to as low as reasonably achievable (ALARA). [facility]: Dose Right [facility]: CareDose [facility]: Dose Right [facility]: Teradose 4D [facility]: [place] CONTRAST TYPE AND DOSE: contrast/concentration: Isovue 350.00 mg/ml; Total Contrast Delivered: 100.0 ml; Total Saline Delivered: 70.0 ml RENAL FUNCTION: BUN 13 creatinine 0.79 RADIATION DOSE: CT Rad equipment meets quality standard of care and radiation dose reduction techniq ues were employed. CTDIvol: 15.2 - 18.0 mGy. DLP: 1829 mGy-cm.. LIMITATIONS: None. FINDINGS: LOWER CHEST: No significant findings. No nodules or infiltrates. LIVER: Normal size. No masses. No dilated ducts. SPLEEN: Normal size. No focal lesions. PANCREAS: No masses. No significant calcifications. No adjacent inflammation or peripancreatic fluid collections. Pancreatic duct not dilated. GALLBLADDER: No identified stones by CT criteria. No inflammatory changes to suggest cholecystitis. ADRENAL GLANDS: No significant masses or asymmetry. RIGHT KIDNEY AND URETER: No solid masses. No significant calcifications. No hydronephrosis or hyd roureter. LEFT KIDNEY AND URETER: No solid masses. No significant calcifications. No hydronephrosis or hydr oureter. AORTA AND VESSELS: No aneurysm. No dissection. Renal arteries, SMA, celiac without stenosis. RETROPERITONEUM: No retroperitoneal adenopathy, hemorrhage or masses. BOWEL AND PERITONEAL CAVITY: No masses or inflammatory changes. No free fluid or peritoneal masses. APPENDIX: Not identified. No pericecal inflammatory changes are seen. PELVIS: There is a 4 cm smooth walled right adnexal cyst. No free fluid. Urinary bladder is normal. ABDOMINAL WALL: No masses. No hernias. BONES: No significant or acute findings. OTHER: No other significant finding. IMPRESSION: There is no evidence of appendicitis. 4 cm right ovarian cyst. Recommend follow-up ult rasound in 6 to 12 weeks. TECHNICAL DOCUMENTATION: JOB ID: [id number] Quality ID # [id number]: Final reports with documentation of one or more dose reduction techniques (e.g., Au tomated exposure control, adjustment of the mA and/or kV according to patient size, use of iterative reconstruction technique) 2010 [employer]- All Rights Reserved Reading location - IP/workstation name: [email or web address]
[2018-11-24] MEDS ORDERED: KETOROLAC TROMETHAMINE INJ/PF 30 MG/1 ML SDV IV ONE (10:31)
== END 2018-11-24 11:28 | disposition home or self-care (01) ==
LOC: ER 05:42
DX: N83.201 Unspecified ovarian cyst, right side (principal); R10.33 Periumbilical pain; R11.0 Nausea; R10.31 Right lower quadrant pain; F17.200 Nicotine dependence, unspecified, uncomplicated; Z88.3 Allergy status to other anti-infective agents
CPT/HCPCS: 99284; 96361; 96374; 96375; 36415; 87086; 84703; 85025; 87088; 80053; 81001; 87186; 74177; J1885; J2405; J7040

== ENCOUNTER 2019-02-28 07:40 | Emergency (ER) | payer SELFPAY ==
[2019-02-28] MEDS ORDERED: IBUPROFEN 800 MG TABLET PO ONE (07:59)
[2019-02-28] MEDS ORDERED: ONDANSETRON 4 MG TAB.RAPDIS PO ONE (07:59)
--- NOTE | 2019-02-28 08:00 | ER Document Report ---
ED General - General Chief Complaint: Abdominal Pain Stated Complaint: STOMACH PAIN Time Seen by Provider: 02/28/19 07:49 Mode of Arrival: Ambulatory Information source: Patient Notes: This 29-year-old female presents emergency department with complaints of right upper quad abdominal pain that started approximately 0200 this morning. She reports pain woke her up. She vomited twice. Took some Pepto which helped relieve some of the nausea. Reports one loose stool this morning. Denies fe teena. Reports she was here couple months ago with abdominal pain but that was more in the right lower quad. TRAVEL OUTSIDE OF THE [place] IN LAST 30 DAYS: No - Related Data Allergies/Adverse Reactions: sulfamethoxazole [From Bactrim] Allergy (Verified 02/28/19 07:41) throat swells, hives trimethoprim [From Bactrim] Allergy (Verified 02/28/19 07:41) throat swells, hives Past Medical History - General Information source: Patient Last Menstrual Period: 02/09/19 - Social History Smoking Status: Unknown if Ever Smoked Family History: Reviewed & Not Pertinent Patient has suicidal ideation: No Patient has homicidal ideation: No Renal/ Medical History: Reports: Hx Ovarian Cysts. Denies: Hx Peritoneal Dialysis Past Surgical History: Reports: Other - salpingectomy - Immunizations Immunizations up to date: Yes Hx Diphtheria, Pertussis, Tetanus Vaccination: Yes Review of Systems - Review of Systems Notes: Review HPI for review of systems., All other systems negative Physical Exam - Vital signs Vitals: Temp Pulse Resp BP Pulse Ox 97.5 F 81 16 119/63 97 02/28/19 07:46 02/28/19 07:46 02/28/19 07:46 02/28/19 07:46 02/28/19 07:46 - Notes Notes: PHYSICAL EXAMINATION: GENERAL: Well-appearing and in no acute distress HEAD: Atraumatic, normocephalic. EYES: Pupils equal round , extraocular movements intact, sclera anicteric, conjunctiva are normal. ENT: nares patent, . Moist mucous membranes. NECK: Normal range of motion, supple without lymphadenopathy LUNGS: CTAB and equal. No wheezes rales or rhonchi. HEART: Regular rate and rhythm without murmurs ABDOMEN: Soft, RUQ ttp, no guarding, no rebound EXTREMITIES: Normal range of motion, NEUROLOGICAL: Cranial nerves grossly intact. PSYCH: Normal mood, normal affect. SKIN: Warm, Dry, normal turgor, no rashes or lesions noted Course - Re-evaluation Re-evalutation: 02/28/19 07:59 29-year-old female the presents to the emergency department with right upper quad abdominal pain. Patient is tender in the right upper quad epigastric area. Nontoxic looking. Denies pain with void denies vaginal discharge. Will obtain labs and bladder ultrasound. Patient treated now with Motrin and Zofran. 02/28/19 09:51 Nitrite positive will treat for UTI. Labs unremarkable still waiting on ultrasound. 02/28/19 08:15 02/28/19 08:15 MCV 90 fl (80-97) 02/28/19 08:15 MCH 30.7 pg (27.0-33.4) 02/28/19 08:15 MCHC 34.2 g/dL (32.0-36.0) 02/28/19 08:15 RDW 13.0 % (11.5-14.0) 02/28/19 08:15 Seg Neutrophils % 66.3 % (42-78) 02/28/19 08:15 Lymphocytes % 22.1 % (13-45) 02/28/19 08:15 Monocytes % 7.5 % (3-13) 02/28/19 08:15 Eosinophils % 3.6 % (0-6) 02/28/19 08:15 Basophils % 0.5 % (0-2) 02/28/19 08:15 Absolute Neutrophils 6.5 10^3/uL (1.7-8.2) 02/28/19 08:15 Absolute Lymphocytes 2.2 10^3/uL (0.5-4.7) 02/28/19 08:15 Absolute Monocytes 0.7 10^3/uL (0.1-1.4) 02/28/19 08:15 Absolute Eosinophils 0.4 10^3/uL (0.0-0.6) 02/28/19 08:15 Absolute Basophils 0.1 10^3/uL (0.0-0.2) 02/28/19 08:15 Chloride 105 mmol/L (98-107) 02/28/19 08:15 Carbon Dioxide 25 mmol/L (22-30) 02/28/19 08:15 Anion Gap 9 (5-19) 02/28/19 08:15 Est GFR ( Amer) > 60 (>60) 02/28/19 08:15 Est GFR (Non-Af Amer) > 60 (>60) 02/28/19 08:15 Glucose 94 mg/dL (75-110) 02/28/19 08:15 Calcium 9.7 mg/dL (8.4-10.2) 02/28/19 08:15 Total Bilirubin 0.2 mg/dL (0.2-1.3) 02/28/19 08:15 AST 18 U/L (14-36) 02/28/19 08:15 ALT 14 U/L (9-52) 02/28/19 08:15 Alkaline Phosphatase 60 U/L (38-126) 02/28/19 08:15 Total Protein 7.4 g/dL (6.3-8.2) 02/28/19 08:15 Albumin 4.4 g/dL (3.5-5.0) 02/28/19 08:15 Lipase 70.2 U/L (23-300) 02/28/19 08:15 Urine Color YELLOW 02/28/19 08:15 Urine Appearance CLOUDY 02/28/19 08:15 Urine pH 6.0 (5.0-9.0) 02/28/19 08:15 Ur Specific [place] 1.016 02/28/19 08:15 Urine Protein NEGATIVE mg/dL (NEGATIVE) 02/28/19 08:15 Urine Glucose (UA) NEGATIVE mg/dL (NEGATIVE) 02/28/19 08:15 Urine Ketones NEGATIVE mg/dL (NEGATIVE) 02/28/19 08:15 Urine Blood SMALL (NEGATIVE) H 02/28/19 08:15 Urine Nitrite POSITIVE (NEGATIVE) H 02/28/19 08:15 Ur Leukocyte Esterase TRACE (NEGATIVE) H 02/28/19 08:15 Urine WBC (Auto) 3 /HPF 02/28/19 08:15 Urine RBC (Auto) 2 /HPF 02/28/19 08:15 02/28/19 Labs unremarkable hepatic stenosis noted normal gallbladder. Patient instructed on all results to include UTI. She was instructed on medication and importance of follow-up with primary care provider for recheck. She verbalized understanding to all instructions. Abdomen Ultrasound 02/28/19 07:57 IMPRESSION: Hepatic steatosis. Normal gallbladder. - Vital Signs Vital signs: Temp Pulse Resp BP Pulse Ox 98.1 F 81 16 95/59 L 100 02/28/19 10:29 02/28/19 07:46 02/28/19 11:01 02/28/19 11:01 02/28/19 11:01 - Laboratory Result Diagrams: 02/28/19 08:15 02/28/19 08:15 Laboratory results interpreted by me: 02/28/19 08:15 Urine Blood SMALL H Urine Nitrite POSITIVE H Ur Leukocyte Esterase TRACE H - Diagnostic Test Radiology reviewed: Image reviewed, Reports reviewed Discharge - Discharge Clinical Impression: Hepatic steatosis Abdominal pain Qualifiers: Abdominal location: right upper quadrant Qualified Code(s): R10.11 - Right upper quadrant pain UTI (urinary tract infection) Qualifiers: Urinary tract infection type: site unspecified Hematuria presence: with hematuria Qualified Code(s): N39.0 - Urinary tract infection, site not specified Condition: Stable Disposition: HOME, SELF-CARE Instructions: Abdominal Pain ([facility]), Antispasmodics ([facility]), Low-Fat Diet ([facility]), Nitrofurantoin ([facility]), Urinary Tract Infection ([facility]) Additional Instructions: *You have been evaluated for abdominal pain, UTI, hepatic steatosis *Take medication as prescribed *Push fluids *Follow up with your primary care provider *Plan urine recheck in one week *Return to ED for worsening condition, changes, needs Prescriptions: Dicyclomine HCl [Bentyl 20 mg Tablet] 20 mg PO TID #15 tablet Nitrofurantoin/Nitrofuran Mac [Macrobid 100 mg Capsule] 100 mg PO BID #20 capsule Forms: Return to Work
[2019-02-28 09:10] LABS: APPEARANCE,URINE CLOUDY; BILIRUBIN,URINE NEGATIVE (NEGATIVE); COLOR,URINE YELLOW; GLUCOSE, URINE NEGATIVE (NEGATIVE); KETONES,URINE NEGATIVE (NEGATIVE); LEUKOCYTE ESTERASE,URINE TRACE (NEGATIVE); NITRITE,URINE POSITIVE (NEGATIVE); PROTEIN,URINE NEGATIVE (NEGATIVE); URINE SPECIFIC GRAVITY 1.016; UROBILINOGEN,URINE NEGATIVE mg/dL (<2.0)
[2019-02-28 09:11] LABS: ABSOLUTE BASOPHILS # (AUTO) 0.1 10^3/uL (0.0-0.2); ABSOLUTE EOSINOPHILS # (AUTO) 0.4 10^3/uL (0.0-0.6); ABSOLUTE LYMPHOCYTES (AUTO) 2.2 10^3/uL (0.5-4.7); ABSOLUTE MONOCYTES (AUTO) 0.7 10^3/uL (0.1-1.4); ABSOLUTE NEUT (AUTO) 6.5 10^3/uL (1.7-8.2); BASOPHILS % (AUTO) 0.5 % (0-2); EOSINOPHILS % (AUTO) 3.6 % (0-6); HEMATOCRIT 38.5 % (36.0-47.0); HEMOGLOBIN 13.2 g/dL (12.0-15.5); LYMPHOCYTES % (AUTO) 22.1 % (13-45); MEAN CORPUSCULAR HEMOGLOBIN 30.7 pg (27.0-33.4); MEAN CORPUSCULAR HGB CONC 34.2 g/dL (32.0-36.0); MEAN CORPUSCULAR VOLUME 90 fl (80-97); MONOCYTES % (AUTO) 7.5 % (3-13); PLATELET COUNT 193 10^3/uL (150-450); RED BLOOD COUNT 4.29 10^6/uL (3.72-5.28); SEGMENTED NEUTROPHILS % (AUTO) 66.3 % (42-78); TOTAL CELLS COUNTED % (AUTO) 100 %; WHITE BLOOD COUNT 9.8 10^3/uL (4.0-10.5)
[2019-02-28 09:19] LABS: ALANINE AMINOTRANSFERASE 14 U/L (9-52); ALBUMIN 4.4 g/dL (3.5-5.0); ALKALINE PHOSPHATASE 60 U/L (38-126); ANION GAP 9 (5-19); ASPARTATE AMINO TRANSFERASE 18 U/L (14-36); BILIRUBIN,DIRECT 0.1 mg/dL (0.0-0.4); BILIRUBIN,TOTAL 0.2 mg/dL (0.2-1.3); BLOOD UREA NITROGEN 11 mg/dL (7-20); CALCIUM 9.7 mg/dL (8.4-10.2); CARBON DIOXIDE 25 mmol/L (22-30); CHLORIDE 105 mmol/L (98-107); GLUCOSE 94 mg/dL (75-110); POTASSIUM 4.1 mmol/L (3.6-5.0); TOTAL PROTEIN 7.4 g/dL (6.3-8.2)
--- NOTE | 2019-02-28 10:55 | RADIOLOGY REPORT (SQ) ---
EXAM DESCRIPTION: U/S ABDOMEN LIMITED W/O DOP COMPLETED DATE/TIME: 02/28/2019 10:12 am REASON FOR STUDY: ruq abd pain COMPARISON: None. TECHNIQUE: Dynamic and static grayscale images acquired of the abdomen and recorded on PACS. Additio nal selected color Doppler and spectral images recorded. LIMITATIONS: None. FINDINGS: PANCREAS: No masses. The tail is poorly seen. LIVER: Increased echogenicity. No masses. LIVER VASCULATURE: Normal directional flow of the main portal vein and hepatic veins. GALLBLADDER: No stones. Normal wall thickness. No pericholecystic fluid. ULTRASOUND-DETECTED SUTTON'S SIGN: Negative. INTRAHEPATIC DUCTS AND COMMON DUCT: CBD and intrahepatic ducts normal caliber. No filling defects. INFERIOR VENA CAVA: Normal flow. AORTA: No aneurysm. RIGHT KIDNEY: Normal size, 11.6 cm. Normal echogenicity. No solid or suspicious masses. No hydroneph rosis. No calcifications. PERITONEAL AND RIGHT PLEURAL SPACE: No ascites or effusions. OTHER: No other significant findings. IMPRESSION: Hepatic steatosis. Normal gallbladder. TECHNICAL DOCUMENTATION: JOB ID: [id number] [employer] All Rights Reserved Reading location - IP/workstation name: [email or web address]
[2019-02-28] MEDS ORDERED: DICYCLOMINE HCL 20 MG TABLET PO ONE (11:12)
[2019-02-28 11:22] VITALS: BP 95/59
== END 2019-02-28 11:24 | disposition home or self-care (01) ==
LOC: ER 07:40
DX: N39.0 Urinary tract infection, site not specified (principal); R31.9 Hematuria, unspecified; K76.0 Fatty (change of) liver, not elsewhere classified; R10.11 Right upper quadrant pain; R10.811 Right upper quadrant abdominal tenderness; R10.816 Epigastric abdominal tenderness; R11.2 Nausea with vomiting, unspecified; R19.4 Change in bowel habit; Z88.1 Allergy status to other antibiotic agents
CPT/HCPCS: 99284; 36415; 83690; 84703; 85025; 80053; 81001; 76705; J3490; S0119